=== PATIENT | female | born 1970 | race Caucasian/White ===

== ENCOUNTER 2024-06-22 01:29 | Day surgery (SDC) | payer OTHER, SELFPAY ==
[2024-06-17 14:10] VITALS: BMI 26.4
--- NOTE | 2024-06-17 16:01 | PC.NURSE ---
Addendum entered by Maritza Nuñez RN 06/18/24 13:29: Pt notified to not take Adderall or Losartan morning of surgery. Original Note: Report to the Outpatient Waiting Room, entrance under the green pavilion located off [facility], at time 0730 on date _06/22/24 . Planned Procedure Time: __929 . Time changes happen often and if your time is changed the preop area will call you the afternoon before. - You and your visitor will be asked to self-screen and do not enter if you have any COVID symptoms. - A mask is optional within the hospital at this time. Patients may have clear liquids (water, carbonated beverages, clear teas, apple juice) until 3 hours prior to surgery with a maximum of 20 ounces. - No food from midnight until time of surgery Take the following medications with a SIP of water the morning of surgery: ___ALPRAZOLAM, ADDERALL, PROZAC, FLONASE, LOSARTAN, LEVOTHYROXINE, TESSALON PERLE, NASAL SPRAY DO NOT STOP ANY OF YOUR OTHER PRESCRIPTION MEDICATIONS PRIOR TO SURGERY ?EXCEPT THE FOLLOWING Medications to discontinue per physician VITAMINS/SUPPLEMENTS Date to take last dose__06/19/24 Please no make-up, nail english, hairspray, perfume, deodorant, or body powder the day of surgery. No jewelry (including any body piercings) or valuables the day of surgery, leave them at home. Please take a shower or bath the night before, or the morning of, surgery with an antibacterial soap. Wear comfortable, loose fitting clothing. - Jewelry must be removed prior to entering the operating room. Rings and piercings that are not removed may be cut off. - The hospital will not accept responsibility for valuables. - Please leave all valuables, including medications, at home the day of surgery. If you are going home after surgery, a licensed test car driver must drive you home. - NO public transportation without another adult if you receive anesthesia. - We recommend that an adult stay with you for 24 hours following discharge. - We also recommend that you do not drive, make important decision, drink alcoholic beverages, or take any drugs that were not prescribed by your health care provider for at least 24 hours after your discharge time. Follow any additional instructions given to you from your surgeon. If you or anyone in your household have experienced Covid symptoms in the past week, please notify your surgeon or the nurse liaison at the phone number below for possible testing. Telephone instructions given to __ TINA and asked if any additional questions and then verbalized understanding. Patient advised to call surgeon office or pre surgery nurse liaison [phone] if any additional questions.
[2024-06-22] VITALS (11 sets, daily range): BP systolic 116–139; BP diastolic 65–77; PULSE 70–90; RESP 14–20; TEMP 36.2–36.4; O2SAT 99–100; BMI 26.6
[2024-06-22] MEDS: LACTATED RINGERS 1,000 ML 30 ML IV CONT ×3 (08:05→12:51)
[2024-06-22 08:15] LABS: Hematocrit 37.5 % (37.0-47.0); Hemoglobin 13.6 g/dL (12.0-15.0)
[2024-06-22] MEDS: KETOROLAC 15 MG/ML VIAL (*BKC) IV PUSH (08:17)
[2024-06-22] MEDS: ACETAMINOPHEN 500 MG TABLET 1000 MG PO (08:18)
--- NOTE | 2024-06-22 09:03 | PM.IMHP ---
H&P: HPI History of Present Illness Date/Time: 06/22/24 09:03 Chief Complaint: Family history of gynecologic cancer Narrative: 53-year-old female with strong family history of gynecologic cancer. We have agreed to perform laparoscopic left Oophorectomy. The patient understands the details of the procedure. The procedure has been explained in detail. She understands the risks. She understands that injuries may occur that result in hospitalization, more surgery, and severe illness. She understands risk of hemorrhage and infection. She denies any chest pain or shortness of breath. She denies any nausea, vomiting, fever, chills. Review of Systems Review of Systems: All systems reviewed & are unremarkable except as noted in HPI and below Constitutional: Constitutional: Denies chills, Denies fatigue, Denies fever(s) and Denies weakness Eyes: Eyes: Denies blurry vision, Denies change in vision, Denies loss of peripheral vision, Denies loss of vision, Denies other visual disturbances and Denies eye pain ENT: Denies vertigo, Denies dizziness, Denies hearing loss, Denies mouth pain, Denies nasal obstruction, Denies neck mass and Denies neck pain Cardiovascular: Cardiovascular: Denies chest pain, Denies diaphoresis, Denies syncope, Denies leg edema and Denies dyspnea Respiratory: Respiratory: Denies chest congestion, Denies cough, Denies hemoptysis, Denies dyspnea and Denies wheezing Gastrointestinal: Gastrointestinal: Denies abdominal pain, Denies constipation, Denies diarrhea, Denies nausea and Denies vomiting Genitourinary: Genitourinary: Denies hematuria, Denies change in libido, Denies nocturia, Denies genital lesions, Denies flank pain and Denies urinary urgency Musculoskeletal: Musculoskeletal: Denies abnormal gait, Denies back pain, Denies myalgias, Denies arthralgias, Denies joint swelling, Denies muscle weakness and Denies neck pain Integumentary/Breasts: Skin/Breast: Denies swelling, Denies breast pain, Denies breast mass, Denies dry skin, Denies nipple discharge, Denies unusual bruising and Denies jaundice Neurologic: Denies Neuro-related abnormal movements, Denies Abnormal speech present, Denies abnormal gait, Denies behavioral changes, Denies confusion, Denies vertigo, Denies dizziness, Denies syncope, Denies loss of vision, Denies memory loss, Denies convulsions and Denies weakness Psychiatric: Psychiatric: Denies abnormal sleep pattern, Denies behavioral changes, Denies change in libido, Denies confusion, Denies depression, Denies anhedonia and Denies memory loss Endocrine: Endocrine: Reports no additional endocrine complaints, Denies change in libido and Denies fatigue Hematologic/Lymphatic: Hematologic/Lymphatic: Reports no additional hematologic/lymphatic complaints Allergic/Immunologic: Allergic/Immunologic: Reports no additional allergic/immunologic complaints and Denies wheezing PMFSH Social History Social History Smoking status: Never smoker Alcohol intake: never Substance use: never Substance use type: does not use Living arrangements: with family Spiritual care concerns: No Meds Home Medications and Allergies Home Medications Medication Instructions Recorded Confirmed Type Lactobacillus 1 cap PO DAILY 06/17/24 06/17/24 History acidophilus-Bifidobac.animalis 2.5 billion cell capsule (Daily Probiotic) acetaminophen 500 mg tablet 500 mg PO Q8H PRN Pain (Scale 06/17/24 06/17/24 History Score 1-3) alprazolam 0.25 mg tablet 0.25 mg PO HS 06/17/24 06/17/24 History benzonatate 100 mg capsule 100 mg PO TID PRN Cough 06/17/24 06/17/24 History black cohosh 540 mg capsule 540 mg PO DAILY 06/17/24 06/17/24 History calcium carbonate 1,000 mg PO DAILY PRN Gastric 06/17/24 06/17/24 History Reflux dextroamphetamine-amphetamine 20 20 mg PO BID 06/17/24 06/17/24 History mg tablet (Adderall) digestive no.8-L.acidophilus 50 1 tablet PO DAILY 06/17/24 06/17/24 History million cell
--- NOTE | 2024-06-22 09:06 | WPDHPUPDATE1 ---
History and Physical Update Update Date/Time: 06/22/24 09:06 History and Physical has been reviewed, including an updated exam of the patient. There are NO changes in the patient's condition. Risks, benefits, and alternatives have been discussed and questions answered. Patient agrees to proceed with procedure.
[2024-06-22] MEDS: SCOPOLAMINE 1 MG PATCH 1 PATCH TRANSDERM (09:20)
--- NOTE | 2024-06-22 09:22 | WPDANESEPPF ---
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 Patient Data Age: 53 Gender: F Height: 1.52 m Weight: 62 kg Last Vital Signs Temp 97.2 F L 06/22/24 07:30 Pulse 90 06/22/24 07:30 Resp 18 06/22/24 07:30 BP 128/67 06/22/24 07:30 Pulse Ox 99 06/22/24 07:30 O2 Del Method Room Air 06/22/24 07:30 Allergies Allergy/AdvReac Type Severity Reaction Status Date / Time azithromycin Allergy Intermediate Anaphylaxis Verified 06/22/24 07:51 erythromycin base Allergy Intermediate Anaphylaxis Verified 06/22/24 07:51 Sulfa (Sulfonamide Allergy Intermediate Rash Verified 06/22/24 07:51 Antibiotics) barium iodide AdvReac Severe Other Verified 06/22/24 07:51 heparin,bovine AdvReac Intermediate Gastrointestinal Verified 06/22/24 07:51 Upset ibuprofen AdvReac Intermediate Gastrointestinal Verified 06/22/24 07:51 Upset ketamine AdvReac Intermediate Irritable Verified 06/22/24 07:51 prochlorperazine AdvReac Intermediate Irritable Verified 06/22/24 07:51 [From Compazine] Home Medications Medication Instructions Recorded Confirmed Type Lactobacillus 1 cap PO DAILY 06/17/24 06/17/24 History acidophilus-Bifidobac.animalis 2.5 billion cell capsule (Daily Probiotic) acetaminophen 500 mg tablet 500 mg PO Q8H PRN Pain (Scale 06/17/24 06/17/24 History Score 1-3) alprazolam 0.25 mg tablet 0.25 mg PO HS 06/17/24 06/17/24 History benzonatate 100 mg capsule 100 mg PO TID PRN Cough 06/17/24 06/17/24 History black cohosh 540 mg capsule 540 mg PO DAILY 06/17/24 06/17/24 History calcium carbonate 1,000 mg PO DAILY PRN Gastric 06/17/24 06/17/24 History Reflux dextroamphetamine-amphetamine 20 20 mg PO BID 06/17/24 06/17/24 History mg tablet (Adderall) digestive no.8-L.acidophilus 50 1 tablet PO DAILY 06/17/24 06/17/24 History million cell-pectin 100 mg tablet (Digestive Enzyme (acidophilus, pectin, bromelain)) docusate sodium 100 mg capsule 100 mg PO DAILY 06/17/24 06/17/24 History (Colace) ferrous sulfate 325 mg (65 mg 325 mg PO DAILY 06/17/24 06/17/24 History iron) tablet (Iron (ferrous sulfate)) fexofenadine 30 mg/5 mL oral 10 mg PO DAILY PRN Allergic 06/17/24 06/17/24 History suspension (Children's Ramonita Reaction Allergy) fluoxetine 40 mg capsule (Prozac) 40 mg PO DAILY 06/17/24 06/17/24 History fluticasone propionate 50 2 spray intranasal BID 06/17/24 06/17/24 History mcg/actuation nasal spray,suspension hydrochlorothiazide 25 mg tablet 25 mg PO DAILY 06/17/24 06/17/24 History ipratropium bromide 42 mcg (0.06 2 spray intranasal QID 06/17/24 06/17/24 History %) nasal spray levothyroxine 75 mcg tablet 75 mcg PO DAILY 06/17/24 06/17/24 History losartan 100 mg tablet 100 mg PO DAILY 06/17/24 06/17/24 History omega 9-sxd-yce-fish oil 230 mg 230 ml PO DAILY 06/17/24 06/17/24 History (150 mg-30 mg)-710 mg emulsion packet ondansetron 4 mg disintegrating 4 mg PO Q6H PRN Y 06/17/24 06/17/24 History tablet oxycodone-acetaminophen 5 mg-325 1 tablet PO Q6H PRN Pain 06/17/24 06/17/24 History mg tablet potassium 99 mg tablet 99 mg PO DAILY 06/17/24 06/17/24 History simethicone 125 mg tablet 125 mg PO DAILY PRN Gastric Reflux 06/17/24 06/17/24 History tramadol 50 mg tablet 50 mg PO TID PRN Pain 06/17/24 06/17/24 History Laboratory Tests 06/22/24 08:10 Hgb 13.6 g/dL (12.0-15.0) Hct 37.5 % (37.0-47.0) Patient hx anesthesia problems: post op nausea/vomiting Family hx anesthesia problems: none Results Review: All pre-operative results and documents have been reviewed as part of the pre-operative evaluation. [facility] Social History Social History Smoking status: Never smoker Alcohol intake: nev
--- NOTE | 2024-06-22 11:24 | W.PM.PROC2 ---
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 , anteriorly and bilaterally. No female genital tract observed Description of Procedure The patient was taken to the operating room. She was prepped and draped in the dorsal lithotomy position after induction general anesthesia. A 5 mm incision was made with a scalpel on the abdominal skin in the left upper quadrant of the abdomen. A 5 mm trocar was inserted into the intra-abdominal cavity under direct visualization the scope. In the same fashion a 5 mm left lower quadrant trocar was inserted and a 5 mm infraumbilical trocar was inserted. 1 hour of extensive adhesiolysis performed , this was performed with sharp and blunt dissection. The ureter was dissected out on the left. The dissection for the left ovary was extensive. It could not be observed. The pelvis was irrigated. The pneumoperitoneum was reduced. The trocars were removed. Skin was closed with subcuticular 4 micro. The patient's incisions were covered with Dermabond. She was taken recovery room in stable condition. Sponge lap and needle counts were correct x2. Complications No immediate complications Condition Stable Disposition Same day
[2024-06-22] MEDS: fentaNYL CITRATE INJ (*CRX) 100 MCG/2 ML VIAL 25 MCG IV PUSH ×3 (11:50→12:09)
[2024-06-22] MEDS: oxyCODONE HCL (*CRX) 5 MG TAB IR PO (12:51)
== END 2024-06-22 14:35 | disposition home or self-care (01) ==
PROVIDERS: Anesthesiology; PCP Nurse Practitioner; Visit Provider Obstetrics & Gynecology
PROC: (CPT 49320; principal; 2024-06-22 09:30)
DX: Z15.09 Genetic susceptibility to other malignant neoplasm (principal); N73.6 Female pelvic peritoneal adhesions (postinfective); Q43.8 Other specified congenital malformations of intestine
CPT/HCPCS: 58660; 36415; 85014; 85018; A9270; J1100; J1200; J1885; J2250; J2371; J2405; J2704; J3010; J7030; J7120